=== PATIENT | female | born 1950 | race Caucasian/White ===

== ENCOUNTER 2017-12-12 19:11 | Observation (INO) | payer MEDICARE ==
[~2017-12-12] VITALS: Ht 162.6 cm; Wt 66.4 kg
[~2017-12-12 19:11] MED LIST: JANU50TA8 PO
[2017-12-12] MEDS ORDERED: NALOXONE HCL 0.4 MG/ML AMP IV PUSH PRN (19:45)
[2017-12-12] MEDS ORDERED: SODIUM CHLORIDE 0.9% FLUSH 10 ML FLUSH IV FLUSH PRN (19:45)
[2017-12-12 20:00] VITALS: BP 198/83; PULSE 66; RESP 20; TEMP 97.9; O2SAT 100
[2017-12-12] MEDS ORDERED: ONDANSETRON HCL 4 MG/2 ML VIAL IVP PRN (20:00)
[2017-12-12] MEDS ORDERED: ACETAMINOPHEN 325 MG TAB PO PRN (20:00)
[2017-12-12] MEDS ORDERED: GLUCAGON 1 MG/ML VIAL OTHER PRN (20:00)
[2017-12-12] MEDS ORDERED: DEXTROSE 50% IN WATER 50 ML VIAL(D50) IV PUSH PRN (20:00)
[2017-12-12] MEDS ORDERED: PROCHLORPERAZINE INJ 10 MG/2 ML VIAL IV PUSH ONE (20:00)
[2017-12-12] MEDS: SODIUM CHLOR 0.9% 1000 ML INJ 1,000 ML IV SCH (20:21)
[2017-12-12] MEDS ORDERED: MAGNESIUM HYDROXIDE SUSP 30 ML CUP PO PRN (21:00)
[2017-12-12] MEDS ORDERED: PROCHLORPERAZINE 25 MG SUPP RECTAL PRN (21:00)
[2017-12-12] MEDS: SODIUM CHLORIDE 0.9% FLUSH 10 ML FLUSH IV FLUSH SCH (21:00)
[2017-12-13] MEDS ORDERED: TRIMETHOBENZAMIDE INJ 200 MG/2 ML VIAL IM PRN (02:30)
[2017-12-13] MEDS: SODIUM CHLOR 0.9% 1000 ML INJ 1,000 ML IV SCH (05:40)
[2017-12-13 07:40] VITALS: BP 187/72; PULSE 96; RESP 16; TEMP 97; O2SAT 99
[2017-12-13 08:55] LABS: AUTOMATED NEUTROPHIL # 7.7 TH/MM3 (1.8-7.7); BASOPHIL # 0.5 TH/MM3 (0-0.2); BASOPHIL % 3.7 % (0.0-2.0); EOSINOPHIL % 0.1 % (0.0-4.0); HEMATOCRIT 35.8 % (35.0-46.0); HEMOGLOBIN 11.9 GM/DL (11.6-15.3); LYMPH % 23.2 % (9.0-44.0); LYMPHOCYTE # 2.9 TH/MM3 (1.0-4.8); MEAN CORPUSCULAR HEMOGLOBIN 28.8 PG (27.0-34.0); MEAN CORPUSCULAR HGB CONC 33.1 % (32.0-36.0); MEAN PLATELET VOLUME 8.4 FL (7.0-11.0); MONO % 11.1 % (0.0-8.0); MONOCYTE # 1.4 TH/MM3 (0-0.9); NEUT % 61.9 % (16.0-70.0); PLATELET COUNT 276 TH/MM3 (150-450); RED BLOOD COUNT 4.12 MIL/MM3 (4.00-5.30); RED CELL DISTRIBUTION WIDTH 14.1 % (11.6-17.2); WHITE BLOOD COUNT 12.5 TH/MM3 (4.0-11.0)
[2017-12-13] MEDS: SODIUM CHLORIDE 0.9% FLUSH 10 ML FLUSH IV FLUSH SCH (09:04)
[2017-12-13 09:37] LABS: BICARBONATE 24.2 MEQ/L (21.0-32.0); CALCIUM 8.5 MG/DL (8.5-10.1); CREATININE 0.62 MG/DL (0.50-1.00)
--- NOTE | 2017-12-13 10:35 | HHI.DCPOC ---
Discharge Care Plan Diagnosis: (1) Dehydration (2) Nausea & vomiting Goals to Promote Your Health * To prevent worsening of your condition and complications * To maintain your health at the optimal level Directions to Meet Your Goals Take your medications as prescribed Follow your dietary instruction Follow activity as directed Keep your appointments as scheduled Take your immunizations and boosters as scheduled If your symptoms worsen call your PCP, if no PCP go to Urgent Care Center or Emergency Room Smoking is Dangerous to Your Health. Avoid second hand smoke Call the 24-hour hour crisis hotline for domestic abuse at Paty Scales MD Dec 13, 2017 10:35
[2017-12-13] MEDS ORDERED: PROM25TA10 PO (10:36)
--- NOTE | 2017-12-13 10:40 | HHI.HP ---
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 She did have a repair of a right humeral fracture about a week ago and has also been on hydrocodone postoperatively. Patient says she was constipated with nausea and vomiting unable to take oral intake. She felt dizzy and lightheaded and came to the emergency room was found to be hypotensive with signs of dehydration. Patient was recommended for IV hydration overnight. She was also found to be hypokalemic. Patient also has diabetes but there is no evidence of acidosis. Patient improved dramatically overnight with IV hydration and elect light correction. She will be discharged home to follow-up with her primary care provider Review of Systems Constitutional: DENIES: Diaphoretic episodes, Fatigue, Fever, Weight gain, Weight loss, Chills, Dizziness, Change in appetite, Night Sweats Endocrine: DENIES: Abnorml menstrual pattern, Heat/cold intolerance, Polydipsia , Polyuria, Polyphagia Eyes: DENIES: Blurred vision, Diplopia, Eye inflammation, Eye pain, Vision loss , Photosensitivity, Double Vision Ears, nose, mouth, throat: DENIES: Tinnitus, Hearing loss, Vertigo, Nasal discharge, Oral lesions, Throat pain, Hoarseness, Ear Pain, Running Nose, Epistaxis, Sinus Pain, Toothache, Odynophagia Cardiovascular: DENIES: Chest pain, Palpitations, Syncope, Dyspnea on Exertion , PND, Lower Extremity Edema, Orthopnea, Claudication Gastrointestinal: COMPLAINS OF: Nausea, Vomiting, DENIES: Abdominal pain, Black stools, Bloody stools, Constipation, Diarrhea, Difficulty Swallowing, Anorexia Genitourinary: DENIES: Abnormal vaginal bleeding, Dysmenorrhea, Dyspareunia, Sexual dysfunction, Urinary frequency, Urinary incontinence, Urgency, Hematuria , Dysuria, Nocturia, Vaginal discharge Musculoskeletal: DENIES: Joint pain, Muscle aches, Stiffness, Joint Swelling, Back pain, Neck pain Integumentary: DENIES: Abnormal pigmentation, Pruritus, Rash, Nail changes, Breast masses, Breast skin changes, Nipple discharge Hematologic/lymphatic: DENIES: Bruising, Lymphadenopathy Immunologic/allergic: DENIES: Eczema, Urticaria Neurologic: DENIES: Abnormal gait, Headache, Localized weakness, Paresthesias, Seizures, Speech Problems, Tremor, Poor Balance Psychiatric: DENIES: Anxiety, Confusion, Mood changes, Depression, Hallucinations, Agitation, Suicidal Ideation, Homicidal Ideation, Delusions Except as stated in HPI: all other systems reviewed are Neg Past Family Social History Past Medical History Diabetes Past Surgical History Repair of humeral fracture Reported Medications 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, also takes hydrocodone postoperatively Allergies: Coded Allergies: Penicillins (Verified Allergy, Severe, Hives, 12/12/17) Sulfa (Sulfonamide Antibiotics) (Verified Allergy, Severe, Hives, 12/12/17) shellfish derived (Verified Allergy, Severe, Swelling, 12/12/17) Active Ordered Medications Reviewed in the EMR Family History Mother from cancer of the breast at 62, father from a stroke at 69 Social History Lives near family, no tobacco or alcohol dependency Physical Exam Vital Signs Vital Signs Date Time Temp Pulse Resp B/P (MAP) Pulse Ox O2 Delivery O2 Flow Rate FiO2 12/13/17 07:40 97.0 96 16 187/72 (110) 99 12/12/17 20:00 97.9 66 20 198/83 (121) 100 Physical Exam GENERAL: This is a well-nourished, well-developed patient, in no apparent distress. SKIN: No rashes, ecchymoses or lesions. Cool and dry. HEAD: Atraumatic. Normocephalic. No temporal or scalp tenderness. EYES: Pupils equal round and reactive. Extraocular motions intact. No scleral icterus. No injection or drainage. ENT: Nose without bleeding, purulent drainage or septal hematoma. Throat without erythema, tonsillar hypertrophy or exudate. Uvula midline. Airway patent. NECK: Trachea midline. No JVD or lymphadenopathy. Supple, nontender, no meningeal signs. CARDIOVASCULAR: Regular rate and rhythm without murmurs, gallops, or rubs. RESPIRATORY: Clear to auscultation. Breath sounds equal bilaterally. No wheezes , rales, or rhonchi. GASTROINTESTINAL: Abdomen soft, non-tender, nondistended. No hepato-splenomegaly , or palpable masses. No guarding. MUSCULOSKELETAL: Extremities without clubbing, cyanosis, or edema. No joint tenderness, effusion, or edema noted. No calf tenderness. Negative Homans sign bilaterally. NEUROLOGICAL: Awake and alert. Cranial nerves II through XII intact. Motor and sensory grossly within normal limits. Five out of 5 muscle strength in all muscle groups. Normal speech. Laboratory Laboratory Tests Test 12/13/17 08:40 White Blood Count 12.5 Red Blood Count 4.12 Hemoglobin 11.9 Hematocrit 35.8 Mean Corpuscular Volume 87.0 Mean Corpuscular Hemoglobin 28.8 Mean Corpuscular Hemoglobin Concent 33.1 Red Cell Distribution Width 14.1 Platelet Count 276 Mean Platelet Volume 8.4 Neutrophils (%) (Auto) 61.9 Lymphocytes (%) (Auto) 23.2 Monocytes (%) (Auto) 11.1 Eosinophils (%) (Auto) 0.1 Basophils (%) (Auto) 3.7 Neutrophils # (Auto) 7.7 Lymphocytes # (Auto) 2.9 Monocytes # (Auto) 1.4 Eosinophils # (Auto) 0.0 Basophils # (Auto) 0.5 CBC Comment DIFF FINAL Differential Comment Blood Urea Nitrogen 14 Creatinine 0.62 Random Glucose 239 Calcium Level 8.5 Sodium Level 134 Potassium Level 2.7 Chloride Level 98 Carbon Dioxide Level 24.2 Anion Gap 12 Estimat Glomerular Filtration Rate 97 Result Diagram: 12/13/17 0840 12/13/17 0840 Imaging Chest x-ray 12/12 no acute cardiopulmonary disease on my review Assessment and Plan Problem List: (1) Dehydration ICD Code: E86.0 - Dehydration Plan: Resolved after IV hydration Hypokalemia improved (2) Nausea & vomiting ICD Code: R11.2 - Nausea with vomiting, unspecified Plan: Resolved after antiemetics Assessment and Plan Discharge home Activity unrestricted transfer text Diet diabetic Discussed Condition With Patient, ER MD Scales,Paty Baker MD Dec 13, 2017 10:40
[2017-12-13] MEDS ORDERED: POTASSIUM CHLORIDE 10 MEQ CONTROLLED RELEASE TAB PO ONE (11:00)
[2017-12-13] MEDS ORDERED: cefTRIAXone INJ 1,000 MG in SODIUM CHLORIDE 0.9% INJ 100 ML IV SCH (16:00)
== END 2017-12-13 11:33 | disposition home or self-care (01) ==
LOC: PHEDDLT 19:11 → PH3B 19:12
PROVIDERS: ADMIT Hospitalist; ATTEND Hospitalist
DX: R11.2 Nausea with vomiting, unspecified (principal); K59.00 Constipation, unspecified; E86.0 Dehydration; I95.9 Hypotension, unspecified; E87.6 Hypokalemia; E11.65 Type 2 diabetes mellitus with hyperglycemia; R82.90 Unspecified abnormal findings in urine; R79.89 Other specified abnormal findings of blood chemistry; Z80.3 Family history of malignant neoplasm of breast
CPT/HCPCS: 71046; 80048; 80053; 81001; 82550; 82948; 83690; 83735; 84484; 85025; 87040; 87077; 87086; 87186; 93005; 96361; 96365; 96366; 96367; 96372; 96374; 96375; 99285; G0378; J0696; J0780; J2405; J2550; J3250; J3480; J7030